=== PATIENT | female | born 1945 | race Caucasian/White ===

== ENCOUNTER 2017-02-02 09:00 | Emergency (ER) | payer MEDICARE, OTHER ==
[~2017-02-02] VITALS: Ht 165.1 cm; Wt 113.4 kg
[~2017-02-02 09:00] MED LIST: HYDROXYZINE HCL25 MG PO; LISINOPRIL40 MG PO; LOVASTATIN20 MG PO; METFORMIN HCL500 M1 PO; TRIAMTERENE-HC1 EAC3 PO
[2017-02-02] MEDS ORDERED: WARFARIN SODIUM5 MG PO (09:18)
[2017-02-02] MEDS ORDERED: METOPROLOL SUC100 MG PO (09:19)
[2017-02-02] MEDS ORDERED: GLIPIZIDE ER10 MG PO (09:19)
[2017-02-02] MEDS ORDERED: CARTIA XT240 MG PO (09:19)
--- NOTE | 2017-02-02 20:22 | EKG ---
[facility] [address] [facility] [place], [place] [address] Signed Atrial fibrillation with rapid ventricular response Low voltage QRS Cannot rule out Anterior infarct , age undetermined Abnormal ECG No previous ECGs available Confirmed by JOSE MANUEL STORY MD ([id number] on 02/02/2017 8:21:56 PM Electronically Signed By: JOSE MANUEL STORY MD 02/02/172021 PATIENT NAME: SAQIB EMANUEL Electrocardiogram DATE OF : 41 PHYSICIAN: JOSE MANUEL STORY MD REPORT #: [id number] REPORT IS CONFIDENTIAL AND NOT TO BE RELEASED WITHOUT AUTHORIZATION
== END 2017-02-02 11:46 | disposition home or self-care (01) ==
LOC: ED 09:00
DX: I48.91 Unspecified atrial fibrillation (principal); I10 Essential (primary) hypertension; E11.9 Type 2 diabetes mellitus without complications; Z87.891 Personal history of nicotine dependence; Z90.710 Acquired absence of both cervix and uterus; Z88.2 Allergy status to sulfonamides; Z88.5 Allergy status to narcotic agent; Z79.899 Other long term (current) drug therapy; Z79.84 Long term (current) use of oral hypoglycemic drugs; Z79.01 Long term (current) use of anticoagulants
CPT/HCPCS: 71010; 80053; 83880; 84484; 85025; 85610; 93005; 93010; 96374; 99283